=== PATIENT | male | born 1990 | race Caucasian/White ===

== ENCOUNTER 2020-06-12 10:51 | Outpatient (REF) | payer OTHER, SELFPAY ==
[2020-06-12 11:24] LABS: MANUAL DIFF FLAG NO
[2020-06-12 11:32] LABS: Basophils Absolute Auto 0.1 X10*3/uL (0.0-0.2); Basophils Percent Auto 0.7 % (0-2); Eosinophils Absolute Auto 0.2 X10*3/uL (0.0-0.4); Eosinophils Percent Auto 2.4 % (0-4); Hemoglobin 12.5 g/dl (14.0-18.0); Imm Gran Abs Auto 0.01 X10*3/uL (0.00-0.03); Imm Gran Pct Auto 0.1 % (0.0-0.4); Lymphocytes Absolute Auto 2.4 X10*3/uL (1.2-4.9); Lymphocytes Percent Auto 33.6 % (20-40); Mean Corpuscular HGB Conc 32.9 g/dl (31.0-36.0); Mean Corpuscular Hemoglobin 29.7 pg (27.0-33.0); Mean Corpuscular Volume 90.3 fL (80-98); Mean Platelet Volume 10.6 fL (9.4-12.4); Monocytes Absolute Auto 0.5 X10*3/uL (0.1-1.2); Monocytes Percent Auto 7.5 % (2-11); Neutrophils Percent Auto 55.7 % (45-73); Platelet Count 238 X10*3/uL (160-400); Red Blood Count 4.21 X10*6/uL (4.60-5.80); Red Cell Distribution Width 13.1 % (11.0-16.0); White Blood Count 7.2 X10*3/uL (4.8-10.8)
== END 2020-06-12 10:52 | disposition home or self-care (01) ==
LOC: HO.LAB 10:51
PROVIDERS: PCP Internal Medicine; Visit Provider Registered Nurse
DX: Z94.2 Lung transplant status (principal)
CPT/HCPCS: 36415; 80197; 85025

== ENCOUNTER 2020-09-16 10:57 | Outpatient (REF) | payer OTHER, SELFPAY ==
[2020-09-16 11:50] LABS: MANUAL DIFF FLAG NO
[2020-09-16 11:56] LABS: Basophils Absolute Auto 0.1 X10*3/uL (0.0-0.2); Eosinophils Absolute Auto 0.2 X10*3/uL (0.0-0.4); Eosinophils Percent Auto 3.3 % (0-4); Hematocrit 38.3 % (42-52); Hemoglobin 12.5 g/dl (14.0-18.0); Imm Gran Abs Auto 0.07 X10*3/uL (0.00-0.03); Imm Gran Pct Auto 1.2 % (0.0-0.4); Lymphocytes Absolute Auto 2.4 X10*3/uL (1.2-4.9); Lymphocytes Percent Auto 41.9 % (20-40); Mean Corpuscular HGB Conc 32.6 g/dl (31.0-36.0); Mean Corpuscular Hemoglobin 29.3 pg (27.0-33.0); Mean Corpuscular Volume 89.9 fL (80-98); Mean Platelet Volume 11.5 fL (9.4-12.4); Monocytes Absolute Auto 0.5 X10*3/uL (0.1-1.2); Neutrophils Absolute Auto 2.6 X10*3/uL (2.0-8.3); Neutrophils Percent Auto 44.6 % (45-73); Platelet Count 220 X10*3/uL (160-400); Red Blood Count 4.26 X10*6/uL (4.60-5.80); Red Cell Distribution Width 13.2 % (11.0-16.0); White Blood Count 5.8 X10*3/uL (4.8-10.8)
[2020-09-16 12:31] LABS: Alanine Aminotransferase 14 U/L (0-40); Albumin Level 4.4 g/dL (3.5-5.0); Alkaline Phosphatase 39 U/L (39-117); Anion Gap 14 (12-20); Aspartate Amino Transferase 15 U/L (5-37); Bilirubin Total 0.4 mg/dL (0.0-1.0); Blood Urea Nitrogen 29 mg/dL (9-16); Carbon Dioxide 25 mmol/L (22-29); Chloride 105 mmol/L (96-108); Estimated Glomerular Filt Rate > 60; Glucose Random 141 mg/dL (60-115); Phosphorus 3.6 mg/dL (2.7-4.5); Potassium 4.3 mmol/l (3.3-5.1); Sodium 140 mmol/L (135-145); Total Protein 7.1 g/dL (6.5-8.0)
[2020-09-16 12:45] LABS: Vitamin D 25-OH Total 30.7 ng/mL (>30)
[2020-09-17 09:37] LABS: Tacrolimus Prograf 8.1 mcg/L
== END 2020-09-16 10:58 | disposition home or self-care (01) ==
LOC: HO.LAB 10:57
PROVIDERS: PCP Internal Medicine; Visit Provider Registered Nurse
DX: Z94.2 Lung transplant status (principal)
CPT/HCPCS: 36415; 80053; 80197; 82306; 83735; 84100; 85025

== ENCOUNTER 2020-09-26 13:41 | Outpatient (REF) | payer OTHER, SELFPAY ==
[2020-09-26 15:39] LABS: Anion Gap 13 (12-20); Blood Urea Nitrogen 27 mg/dL (9-16); Calcium 9.8 mg/dL (8.4-10.2); Carbon Dioxide 31 mmol/L (22-29); Chloride 98 mmol/L (96-108); Estimated Glomerular Filt Rate 58; Glucose Random 98 mg/dL (60-115); Potassium 3.9 mmol/l (3.3-5.1); Sodium 138 mmol/L (135-145)
== END 2020-09-26 13:42 | disposition home or self-care (01) ==
LOC: HO.LAB 13:41
PROVIDERS: PCP Internal Medicine; Visit Provider Registered Nurse
DX: Z94.2 Lung transplant status (principal)
CPT/HCPCS: 36415; 80048

== ENCOUNTER 2020-10-06 14:30 | Outpatient (REF) | payer OTHER, SELFPAY ==
[2020-10-06 15:29] LABS: Hematocrit 39.5 % (42-52); Hemoglobin 12.8 g/dl (14.0-18.0); Mean Corpuscular HGB Conc 32.4 g/dl (31.0-36.0); Mean Corpuscular Hemoglobin 28.9 pg (27.0-33.0); Mean Corpuscular Volume 89.2 fL (80-98); Mean Platelet Volume 11.8 fL (9.4-12.4); Platelet Count 202 X10*3/uL (160-400); Red Blood Count 4.43 X10*6/uL (4.60-5.80); White Blood Count 4.8 X10*3/uL (4.8-10.8)
[2020-10-06 15:30] LABS: INTERNATIONAL NORM RATIO 1.1 (0.9-1.1)
[2020-10-06 15:32] LABS: Partial Thromboplastin Time 30.5 SEC (24.1-38.0)
[2020-10-06 15:47] LABS: Anion Gap 14 (12-20); Blood Urea Nitrogen 25 mg/dL (9-16); Calcium 9.1 mg/dL (8.4-10.2); Carbon Dioxide 26 mmol/L (22-29); Chloride 102 mmol/L (96-108); Estimated Glomerular Filt Rate 59; Glucose Random 128 mg/dL (60-115); Potassium 4.8 mmol/l (3.3-5.1); Sodium 137 mmol/L (135-145)
[2020-10-06 15:50] LABS: Lymphocytes Absolute Manual 1.1 X10*3/uL (0.6-4.8); Lymphocytes Percent Manual 23 % (20-40); Monocytes Absolute Manual 0.1 X10*3/uL (0.0-1.2); Monocytes Percent Manual 3 % (2-11); Neutrophils Percent Manual 74 % (45-73)
[2020-10-06 15:51] LABS: Platelet Estimate NORMAL (NORMAL); Platelet Morphology Comment NORMAL; RBC Morphology NORMAL
[2020-10-06 16:27] LABS: Band Neutrophils Percent 0 % (3-5); Neutrophils Absolute Manual 3.6 X10*3/uL (2.2-7.9)
[2020-10-07 07:12] LABS: Tacrolimus Prograf 14.8 mcg/L
[2020-10-09 02:57] LABS: CMV DNA PCR Qn Source Whole Blood; CMV DNA Qn PCR <2.30 log IU/mL (<2.30); CMV DNA Qn Real Time PCR <200 IU/mL (<200)
== END 2020-10-06 14:31 | disposition home or self-care (01) ==
LOC: HO.LAB 14:30
PROVIDERS: PCP Internal Medicine; Visit Provider Registered Nurse
DX: Z94.2 Lung transplant status (principal)
CPT/HCPCS: 36415; 80048; 80197; 85007; 85027; 85610; 85730; 87497

== ENCOUNTER 2020-10-17 10:52 | Outpatient (REF) | payer OTHER, SELFPAY ==
[2020-10-17 12:17] LABS: Anion Gap 14 (12-20); Blood Urea Nitrogen 22 mg/dL (9-16); Calcium 9.4 mg/dL (8.4-10.2); Carbon Dioxide 27 mmol/L (22-29); Chloride 103 mmol/L (96-108); Estimated Glomerular Filt Rate > 60; Glucose Random 129 mg/dL (60-115); Potassium 4.5 mmol/L (3.3-5.1); Sodium 139 mmol/L (135-145)
[2020-10-18 05:48] LABS: Tacrolimus Prograf 6.9 mcg/L
== END 2020-10-17 10:53 | disposition home or self-care (01) ==
LOC: HO.LAB 10:52
PROVIDERS: PCP Internal Medicine; Visit Provider Registered Nurse
DX: Z94.2 Lung transplant status (principal)
CPT/HCPCS: 36415; 80048; 80197

== ENCOUNTER 2021-10-29 02:09 | Emergency (ER) | payer MEDICARE, MEDICAID, SELFPAY ==
[2021-10-29 02:13] VITALS: BP 141/69; PULSE 79; RESP 16; TEMP 36.4; O2SAT 99; BMI 19.3
--- NOTE | 2021-10-29 02:55 | ED_ITS ---
HPI - Ear Problem General Chief complaint: Ear Problems Stated complaint: Earache Time Seen by Provider: 10/29/21 02:28 Source: patient Mode of arrival: ambulatory History of Present Illness HPI Narrative: 31-year-old male with multiple significant medical history to include diabetes, CF, lung transplant who presents with having been treated with ear drops approximately 2 weeks ago by his primary care provider for a left ear infection and states that initially he had good relief but states that he is now having 10/10 pain in the left ear which is causing radiation down into the Alexi neck. Patient denies any fevers, chills, sore throat, visual changes. Related Data Home Medications Medication Instructions Recorded Confirmed amlodipine 5 mg tablet 5 mg PO DAILY 10/12/21 10/29/21 ascorbic acid (vitamin C) 500 mg 500 mg PO BID 10/12/21 10/29/21 tablet (Vitamin C) azithromycin 250 mg tablet 250 mg PO USEASDIRECTD 10/12/21 10/29/21 calcium carbonate 600 mg-vitamin 1 tab PO DAILY 10/12/21 10/29/21 D3 20 mcg (800 unit) tablet ferrous gluconate 324 mg (38 mg 324 mg PO BID 10/12/21 10/29/21 iron) tablet multivitamin with folic acid 400 1 tab PO DAILY 10/12/21 10/29/21 mcg tablet (Daily-Nic (with folic acid)) prednisone 5 mg tablet 5 mg PO DAILY 10/12/21 10/29/21 tacrolimus 1 mg capsule, 4 mg PO BID 10/12/21 10/29/21 immediate-release atovaquone 750 mg/5 mL oral 1,500 mg PO DAILY 10/29/21 10/29/21 suspension biotin 5 mg capsule 5 mg PO DAILY 10/29/21 10/29/21 insulin aspart U-100 100 unit/mL See Rx Instructions .ROUTE .COMPLEX 10/29/21 10/29/21 (3 mL) subcutaneous pen (Novolog Flexpen U-100 Insulin aspart) [id number]-hiovell 5 cap PO USEASDIRECTD 10/29/21 10/29/21 24,000-76,000-120,000 unit capsule,delayed rel (Creon) magnesium oxide 400 mg (241.3 mg 1 tab PO BID 10/29/21 10/29/21 magnesium) tablet mycophenolate mofetil 500 mg tablet 2 tab PO BID 10/29/21 10/29/21 omeprazole 40 mg capsule,delayed 1 cap PO DAILY 10/29/21 10/29/21 release Previous Rx's Medication Instructions Recorded ofloxacin 0.3 % ear drops 5 drp OTIC (EARS) BID 14 Days #10 10/12/21 ml ciprofloxacin HCl 750 mg tablet 750 mg PO Q12H 7 Days #14 tab 10/29/21 Allergies Allergy/AdvReac Type Severity Reaction Status Date / Time morphine Allergy Unknown Unknown Verified 10/29/21 02:12 piperacillin [Zosyn] Allergy Unknown Unknown Verified 10/29/21 02:12 tazobactam [Zosyn] Allergy Unknown Unknown Verified 10/29/21 02:12 No Known Allergies Allergy Verified 10/29/21 02:12 Review of Systems Review of Systems: Pertinent positives and negatives as stated in HPI 10 point review of systems is otherwise negative. [facility] Past Medical History Source: nursing notes reviewed Social History Social History Housing: Apartment Alcohol intake: never Patient Tobacco Use Status: Never used Tobacco Second Hand Smoke Exposure: Yes Advance Directives: No service: No Current occupational status: employed Physical Exam Vital Signs: Vital Signs: Last Vital Signs Temp 97.6 F 10/29/21 02:13 Pulse 79 10/29/21 02:13 Resp 16 10/29/21 02:13 BP 141/69 H 10/29/21 02:13 Pulse Ox 99 10/29/21 02:13 BMI result Body Mass Index 19.3 VITAL SIGNS: Reviewed. GENERAL: Well developed, well nourished, in no acute distress. HEAD: Normocephalic/atraumatic EYES: PERRLA, EOMI EARS: LEFT Ext canals with erythema/edema, no tragus/pinnae pain on manipulation, no pain on palpation over mastoid,RIGHT external canalwithout abnormality, TMs non-bulging and non-erythematous NOSE: Nares patent bilateral OROPHARYNX: no oral lesions noted, posterior pharynx clear and non-erythematous without noted tonsillar enlargement/erythema/exudates, uvula is midline, there is no unilateral elevation of tonsillar pillars with, no trismus NECK: Supple, no adenopathy LUNGS: Normal breath sounds. No adventitious sounds or accessory muscle use. SpO2<99> CARDIOVASCULAR: Regular rate and rhythm without noted murmurs ABDOMEN: Soft, non-tender, non-distended with bowel sounds. SKIN: Inspection of the skin reveals no rashes NEUROLOGIC: Alert and oriented x 4. Course Course Course Narrative: 31-year-old male with history and clinical presentation consistent with an otitis externa and given underlying medical comorbidities patient will be placed on systemic ciprofloxacin twice daily. Patient was instructed to follow-up with his doctor later this morning to further discuss the treatment regimen and close re-evaluation. In addition, interaction purchase order checker was conducted on all of patient's home medications and this information was provided to him as well as counseling regarding strenuous activities given the fact that he is on prednisone as well as needing to be on a course of ciprofloxacin. He acknowledges understanding and initial dose was provided here in the emergency room and he was discharged with remaining course. Discharge Plan Discharge Clinical Impression: Otitis externa Patient Disposition: Home, Self-Care Instructions: Ciprofloxacin (By mouth), Otitis Externa (ED) Additional Instructions: 1. Resume all home medications, however please follow the instructions for adjusting timing of medications with the new antibiotic that you are taking orally. 2. Recommend [id number] Tylenol for discomfort. 3. Recommend completing the entire course of antibiotics. Please exercise caution with strenuous activity given concerns for possible tendon rupture. 4. 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 Return to the ER for worsening symptoms. Prescriptions: New ciprofloxacin HCl 750 mg tablet 750 mg PO Q12H 7 Days Qty: 14 0RF No Action biotin 5 mg Capsule 5 mg PO DAILY 0RF omeprazole 40 mg capsule,delayed release(DR/EC) 1 cap PO DAILY 0RF mycophenolate mofetil 500 mg tablet 2 tab PO BID 0RF magnesium oxide 400 mg (241.3 mg magnesium) tablet 1 tab PO BID 0RF atovaquone 750 mg/5 mL suspension 1,500 mg PO DAILY 0RF insulin aspart U-100 [Novolog Flexpen U-100 Insulin] 100 unit/mL (3 mL) insulin pen See Rx Instructions .ROUTE .COMPLEX 0RF Rx Instructions: ACHS Creon 24,000-76,000 -120,000 unit capsule,delayed release(DR/EC) 5 cap PO USEASDIRECTD 0RF Rx Instructions: 5 cap meals / 3 cap snacks multivitamin with folic acid [Daily-Nic (with folic acid)] 400 mcg tablet 1 tab PO DAILY 0RF prednisone 5 mg tablet 5 mg PO DAILY 0RF azithromycin 250 mg tablet 250 mg PO USEASDIRECTD 0RF Rx Instructions: MWF ascorbic acid (vitamin C) [Vitamin C] 500 mg tablet 500 mg PO BID 0RF calcium carbonate-vitamin D3 600 mg-20 mcg (800 unit) tablet 1 tab PO DAILY 0RF amlodipine 5 mg tablet 5 mg PO DAILY 0RF tacrolimus 1 mg capsule 4 mg PO BID 0RF ferrous gluconate 324 mg (38 mg iron) tablet 324 mg PO BID 0RF ofloxacin 0.3 % drops 5 drp otic (ears) BID 14 Days Qty: 10 0RF Referrals: Alexi Chandler MD [Physician] - 2 days (Patient had to be started on systemic ciprofloxacin for otitis externa of the left ear which did not resolve with ear drops.) Po,Moe Ayon MD [Primary Care Provider] - 2 days
[2021-10-29] MEDS: levoFLOXacin 750 MG TABLET PO (03:46)
== END 2021-10-29 03:47 | disposition home or self-care (01) ==
PROVIDERS: Emergency Provider Student in an Organized Health Care Education/Training Program; PCP Internal Medicine
DX: H60.93 Unspecified otitis externa, bilateral (principal); Z79.899 Other long term (current) drug therapy
CPT/HCPCS: 99283

== ENCOUNTER 2021-11-07 10:02 | Emergency (ER) | payer MEDICARE, MEDICAID, SELFPAY ==
--- NOTE | 2021-11-07 10:08 | ED.EAR ---
HPI - Ear Problem General Chief complaint: Ear Problems Stated complaint: Ear infection Time Seen by Provider: 11/07/21 10:08 Source: patient Mode of arrival: ambulatory Limitations: no limitations History of Present Illness HPI Narrative: 31 y/o male with history of cystic fibrosis s/p lung transplant in December 2018 presents to the ER for evaluation ongoing left ear pain. He reports the pain started almost a month ago and he was given antibiotic ear drops with no relief. He was seen here on on 10/29 and prescribed 7 days of ciprofloxacin. He reports the pain improved significantly with his but when he completed it a few days ago the pain started worsening again. He feels like he has muffled hearing in his left ear as well. No fever or chills. No nasal discharge or congestion. No hx of recurrent ear infections in the past. No current pulmonary issues. MD Complaint: ear pain and decreased hearing Location: left ear Duration: constant Severity: moderate Relieving factors: other (PO abx) Exacerbating factors: nothing Discharge from ear: no Associated symptoms ear: decreased hearing and external ear tenderness Treatment prior to arrival: none Related Data Home Medications Medication Instructions Recorded Confirmed amlodipine 5 mg tablet 5 mg PO DAILY 10/12/21 10/29/21 ascorbic acid (vitamin C) 500 mg 500 mg PO BID 10/12/21 10/29/21 tablet (Vitamin C) azithromycin 250 mg tablet 250 mg PO USEASDIRECTD 10/12/21 10/29/21 calcium carbonate 600 mg-vitamin 1 tab PO DAILY 10/12/21 10/29/21 D3 20 mcg (800 unit) tablet ferrous gluconate 324 mg (38 mg 324 mg PO BID 10/12/21 10/29/21 iron) tablet multivitamin with folic acid 400 1 tab PO DAILY 10/12/21 10/29/21 mcg tablet (Daily-Nic (with folic acid)) prednisone 5 mg tablet 5 mg PO DAILY 10/12/21 10/29/21 tacrolimus 1 mg capsule, 4 mg PO BID 10/12/21 10/29/21 immediate-release atovaquone 750 mg/5 mL oral 1,500 mg PO DAILY 10/29/21 10/29/21 suspension biotin 5 mg capsule 5 mg PO DAILY 10/29/21 10/29/21 insulin aspart U-100 100 unit/mL See Rx Instructions .ROUTE .COMPLEX 10/29/21 10/29/21 (3 mL) subcutaneous pen (Novolog Flexpen U-100 Insulin aspart) [id number] 5 cap PO USEASDIRECTD 10/29/21 10/29/21 24,000-76,000-120,000 unit capsule,delayed rel (Creon) magnesium oxide 400 mg (241.3 mg 1 tab PO BID 10/29/21 10/29/21 magnesium) tablet mycophenolate mofetil 500 mg tablet 2 tab PO BID 10/29/21 10/29/21 omeprazole 40 mg capsule,delayed 1 cap PO DAILY 10/29/21 10/29/21 release Previous Rx's Medication Instructions Recorded ofloxacin 0.3 % ear drops 5 drp OTIC (EARS) BID 14 Days #10 10/12/21 ml ciprofloxacin HCl 750 mg tablet 750 mg PO Q12H 7 Days #14 tab 10/29/21 ciprofloxacin 0.3 %-dexamethasone 4 drp OTIC (EARS) BID 7 Days #7.5 11/07/21 0.1 % ear drops,suspension ml (Ciprodex) levofloxacin 500 mg tablet 500 mg PO DAILY #14 tab 11/07/21 Allergies Allergy/AdvReac Type Severity Reaction Status Date / Time morphine Allergy Unknown Unknown Verified 10/29/21 02:12 piperacillin [Zosyn] Allergy Unknown Unknown Verified 10/29/21 02:12 tazobactam [Zosyn] Allergy Unknown Unknown Verified 10/29/21 02:12 No Known Allergies Allergy Verified 10/29/21 02:12 Review of Systems Review of Systems: Constitutional: No Fever, No Chills ENT/Mouth: No sore throat, No Rhinorrhea, +Otalgia, +hearing loss, no ear discharge Eyes: No Eye Pain, No Swelling, No Redness Cardiovascular: No Chest Pain, No SOB Respiratory: No Cough, No Sputum Gastrointestinal: No Nausea, No Vomiting Skin: No Skin Lesions, No rash Neuro: No Dizziness, No Headache Heme/Lymph: No Lymphadenopathy PMFSH Social History Social History Housing: Apartment Alcohol intake: never Patient Tobacco Use Status: Never used Tobacco Second Hand Smoke Exposure: Yes Use of substances other than those prescribed or required for medical reasons: No Advance Directives: No Advance Directives Information Provided: No service: No Current occupational status: employed Physical Exam Vital Signs: Vital Signs: Last Vital Signs Temp 98.3 F 11/07/21 10:11 Pulse 82 11/07/21 10:11 Resp 20 11/07/21 10:11 BP 144/71 H 11/07/21 10:11 Pulse Ox 99 11/07/21 10:11 BMI result Body Mass Index 19.3 Appearance: Alert. Oriented X3. No acute distress. Eyes: Pupils equal, round and reactive to light. ENT: Normal inspection of external ears bilaterally. Right EAC and TM normal. Left ear with discomfort with tragus pull. EAC with moderate erythema distally. TM with erythema mostly at superior portion, bulging and effusion. tender Neck: Normal inspection. Neck supple. No LAD CVS: Normal heart rate and rhythm. Pulses normal. Respiratory: No respiratory distress. Speaking in complete sentences Skin: Skin warm and dry. Normal skin color. Normal skin turgor. No rashes. Extremities: Normal inspection x4 Neuro: Oriented X 3. Grossly normal, nonfocal Course Course Course Narrative: 31 y/o male with hx CF s/p lung transplant on chronic immunosuppression presents to the ER with ongoing left ear pain for almost a month. His exam is consistent with AOM and some otitis externa as well. He did have improvement and relief with PO cipro but the course did not seem to be long enough. Will plan to give a full 2 weeks of PO levofloxacin, topical ciprodex and refer to ENT for further evaluation. patient agrees with plan. He last had blood work done a month or 2 ago with normal renal function and normal prograf levels. Discharge Plan Discharge Clinical Impression: Otitis media, Otitis externa Patient Disposition: Home, Self-Care Instructions: Otitis Externa (DC), Ear Infection (ED) Additional Instructions: Take the prescribed antibiotic as directed for a full 2 weeks. Also use the topical antibiotic drops to help with pain and swelling of the ear canal. Recommend following up with ENT specialist - name and number below Do not get water in your ear - when you shower put a small cotton ball in your ear to keep it dry Take Motrin and/or Tylenol as needed for pain If you develop new or worsening symptoms call 911 or come back to the ER for further evaluation. Prescriptions: New levofloxacin 500 mg tablet 500 mg PO DAILY Qty: 14 0RF ciprofloxacin-dexamethasone [Ciprodex] 0.3-0.1 % drops,suspension 4 drp otic (ears) BID 7 Days Qty: 7.5 0RF No Action biotin 5 mg Capsule 5 mg PO DAILY 0RF omeprazole 40 mg capsule,delayed release(DR/EC) 1 cap PO DAILY 0RF mycophenolate mofetil 500 mg tablet 2 tab PO BID 0RF magnesium oxide 400 mg (241.3 mg magnesium) tablet 1 tab PO BID 0RF atovaquone 750 mg/5 mL suspension 1,500 mg PO DAILY 0RF insulin aspart U-100 [Novolog Flexpen U-100 Insulin] 100 unit/mL (3 mL) insulin pen See Rx Instructions .ROUTE .COMPLEX 0RF Rx Instructions: ACHS Creon 24,000-76,000 -120,000 unit capsule,delayed release(DR/EC) 5 cap PO USEASDIRECTD 0RF Rx Instructions: 5 cap meals / 3 cap snacks ciprofloxacin HCl 750 mg tablet 750 mg PO Q12H 7 Days Qty: 14 0RF multivitamin with folic acid [Daily-Nic (with folic acid)] 400 mcg tablet 1 tab PO DAILY 0RF prednisone 5 mg tablet 5 mg PO DAILY 0RF azithromycin 250 mg tablet 250 mg PO USEASDIRECTD 0RF Rx Instructions: MWF ascorbic acid (vitamin C) [Vitamin C] 500 mg tablet 500 mg PO BID 0RF calcium carbonate-vitamin D3 600 mg-20 mcg (800 unit) tablet 1 tab PO DAILY 0RF amlodipine 5 mg tablet 5 mg PO DAILY 0RF tacrolimus 1 mg capsule 4 mg PO BID 0RF ferrous gluconate 324 mg (38 mg iron) tablet 324 mg PO BID 0RF ofloxacin 0.3 % drops 5 drp otic (ears) BID 14 Days Qty: 10 0RF Referrals: John Llanes [Physician] - 1 week (resistant ear infection requiring 2 courses of PO abx and gtts, hx CF, immunocompromised)
[2021-11-07 10:11] VITALS: BP 144/71; PULSE 82; RESP 20; TEMP 36.8; O2SAT 99; BMI 19.3
== END 2021-11-07 10:31 | disposition home or self-care (01) ==
PROVIDERS: Emergency Provider Emergency Medicine Emergency Medical Services; PCP Internal Medicine
DX: H66.92 Otitis media, unspecified, left ear (principal); H60.92 Unspecified otitis externa, left ear; E84.9 Cystic fibrosis, unspecified; Z94.2 Lung transplant status
CPT/HCPCS: 99283; 99284

== ENCOUNTER 2021-11-18 10:37 | Outpatient (REF) | payer MEDICARE, MEDICAID, SELFPAY ==
[2021-11-18 11:01] LABS: MANUAL DIFF FLAG NO
[2021-11-18 11:21] LABS: Basophils Percent Auto 0.6 % (0-2); Eosinophils Absolute Auto 0.2 X10*3/uL (0.0-0.4); Eosinophils Percent Auto 2.6 % (0-4); Hematocrit 37.1 % (42.0-52.0); Hemoglobin 11.6 g/dl (14.0-18.0); Imm Gran Abs Auto 0.02 X10*3/uL (0.00-0.03); Imm Gran Pct Auto 0.3 % (0.0-0.4); Lymphocytes Absolute Auto 2.1 X10*3/uL (1.2-4.9); Lymphocytes Percent Auto 29.9 % (20-40); Mean Corpuscular HGB Conc 31.3 g/dl (31.0-36.0); Mean Corpuscular Hemoglobin 28.3 pg (27.0-33.0); Mean Corpuscular Volume 90.5 fL (80.0-98.0); Monocytes Absolute Auto 0.7 X10*3/uL (0.1-1.2); Monocytes Percent Auto 10.1 % (2-11); Neutrophils Percent Auto 56.5 % (45-73); Platelet Count 228 X10*3/uL (160-400); Red Cell Distribution Width 13.9 % (11.0-16.0)
[2021-11-18 11:46] LABS: Anion Gap 11 (12-20); Blood Urea Nitrogen 24 mg/dL (9-16); Calcium 9.3 mg/dL (8.4-10.2); Carbon Dioxide 27 mmol/L (22-29); Chloride 106 mmol/L (96-108); Estimated Glomerular Filt Rate > 60; Glucose Random 116 mg/dL (60-115); Potassium 4.5 mmol/L (3.3-5.1); Sodium 139 mmol/L (135-145)
[2021-11-19 15:21] LABS: Tacrolimus Prograf 7.7 mcg/L
== END 2021-11-18 10:38 | disposition home or self-care (01) ==
LOC: HO.LAB 10:37
PROVIDERS: PCP Internal Medicine; Visit Provider Registered Nurse
DX: Z94.2 Lung transplant status (principal); Z79.899 Other long term (current) drug therapy
CPT/HCPCS: 36415; 80048; 80197; 85025

== ENCOUNTER 2022-03-04 10:55 | Outpatient (REF) | payer MEDICARE, MEDICAID, SELFPAY ==
[2022-03-06 13:42] LABS: Tacrolimus Prograf 6.7 mcg/L
== END 2022-03-04 10:56 | disposition home or self-care (01) ==
LOC: HO.LAB 10:55
PROVIDERS: PCP Internal Medicine; Visit Provider Registered Nurse
DX: Z94.2 Lung transplant status (principal); Z79.899 Other long term (current) drug therapy
CPT/HCPCS: 36415; 80197

== ENCOUNTER 2022-10-27 10:55 | Outpatient (REF) | payer MEDICARE, MEDICAID, SELFPAY | END 2022-10-27 10:56 | disposition home or self-care (01) | LOC: HO.LAB 10:55 | PROVIDERS: PCP Internal Medicine; Visit Provider Registered Nurse | DX: Z94.2 Lung transplant status (principal) | CPT/HCPCS: 36415; 80197 ==

== ENCOUNTER 2022-12-11 14:45 | Outpatient (REF) | payer MEDICARE, MEDICAID, SELFPAY ==
[2022-12-11 15:53] LABS: Appearance Urine Clear; Color Urine Yellow; Glucose Urine UA Negative (Negative); Leukocyte Esterase Urine Negative (Negative); Nitrite Urine Negative (Negative); PH 6.5 (5.0-9.0); Urine Blood Negative (Negative); Urine Ketones Negative (Negative); Urine Protein Negative (Neg-Trace)
[2022-12-13 08:24] LABS: Syphilis Screen Nonreactive (Nonreactive)
[2022-12-13 08:33] LABS: HBsAGNum1 0.39 S/CO (0.00-0.99); HIV AB/AG Nonreactive (Nonreactive); HIV Num 1 0.08 S/CO (0.00-0.99); Hepatitis B Surface Antigen Negative (Negative); ~HepC Num1 0.34 S/CO (0.00-0.79); ~Hepatitis C Antibody Nonreactive (Nonreactive)
[2022-12-16 15:29] LABS: HSV 1 IgM IFA Negative (Negative); HSV 2 IgM IFA Negative (Negative)
== END 2022-12-11 14:46 | disposition home or self-care (01) ==
LOC: HO.HMGCLDS 14:45
PROVIDERS: PCP Internal Medicine; Visit Provider Physician Assistant Medical
DX: A64 Unspecified sexually transmitted disease (principal); R30.0 Dysuria; Z20.2 Contact with and (suspected) exposure to infections with a predominantly sexual mode of transmission
CPT/HCPCS: 36415; 81003; 86695; 86696; 86780; 86803; 87340; 87389

== ENCOUNTER 2022-12-11 14:48 | Outpatient (REF) | payer MEDICARE, MEDICAID, SELFPAY | END 2022-12-11 14:49 | disposition home or self-care (01) | LOC: HO.LAB 14:48 | PROVIDERS: Visit Provider Physician Assistant Medical | DX: Z13.89 Encounter for screening for other disorder (principal) ==

== ENCOUNTER 2023-01-24 12:09 | Outpatient (REF) | payer MEDICARE, MEDICAID, SELFPAY ==
[2023-01-24 13:42] LABS: Vitamin D 25-OH Total 30.6 ng/mL (>30)
== END 2023-01-24 12:10 | disposition home or self-care (01) ==
LOC: HO.LAB 12:09
PROVIDERS: Visit Provider Registered Nurse
DX: E55.9 Vitamin D deficiency, unspecified (principal)
CPT/HCPCS: 36415; 82306

== ENCOUNTER 2023-05-24 11:01 | Outpatient (REF) | payer MEDICARE, MEDICAID, SELFPAY ==
[2023-05-24 12:46] LABS: Phosphorus 1.8 mg/dL (2.7-4.5)
[2023-05-25 13:02] LABS: Tacrolimus Prograf 10.2 NG/ML ((5-20))
== END 2023-05-24 11:02 | disposition home or self-care (01) ==
LOC: HO.LAB 11:01
PROVIDERS: Visit Provider Registered Nurse
DX: Z94.2 Lung transplant status (principal)
CPT/HCPCS: 36415; 80197; 84100

== ENCOUNTER 2023-07-28 08:22 | Outpatient (REF) | payer MEDICARE, MEDICAID, SELFPAY ==
--- NOTE | ~2023-07-28 | MM_ITS ---
EXAMINATION: BONE DENSITOMETRY CLINICAL INDICATION: Long-term use of systemic steroids. Vitamin D deficiency. COMPARISON: Baseline BD dated 06/06/2020. TECHNIQUE: Using a Quantified Skin DXA System (software version: 13.1) manufactured by [employer], dual-energy x-ray absorptiometry was performed of the lumbar spine and left hip. The images are of good technical quality. Based on ISCD (International Society for Clinical Densitometry) standards of reporting, Z-scores instead of T-scores are reported in this male patient younger than age 50. Summary results are attached. FINDINGS: AP SPINE L1-L4: Current: BMD 1.074 g/cm2, T-score -1.2, Z-score -0.7, Z-score within expected range for age, 4.9% increase from baseline (<5% change is not significant). Baseline: BMD 1.024 g/cm2. LEFT FEMUR, NECK: Current: BMD 0.928 g/cm2, T-score -1.1, Z-score -0.7, Z-score within expected range for age. Baseline: BMD 0.832 g/cm2. LEFT FEMUR, TOTAL: Current: BMD 0.865 g/cm2, T-score -1.6, Z-score -1.3, Z-score within expected range for age, 3.3% increase from baseline (<5% change is not significant). Baseline: BMD 0.837 g/cm2. IDENTIFIED RISK FACTORS: Glucocorticoids (chronic), secondary osteoporosis (type 1 diabetes). HISTORY OF FRACTURE: None listed. MEDICATIONS: Calcium or multivitamin. Vitamin D. MM/XR DEXA axial skeleton IMPRESSION: 1. DIAGNOSIS: Based on the lowest Z-score value of -1.3 in the total femur, the patient's bone density is within the expected range for age. 2. 10-YEAR FRACTURE RISK PREDICTION, FRAX: Not performed in this patient outside the age range of 50-90 years. 3. Treatment Recommendations: NOF guidelines recommend consideration for treatment in postmenopausal women and men age 50 and older presenting with the following: -A hip or vertebral (clinical or morphometric) fracture. -T-score less than or equal to -2.5 at the femoral neck or spine after appropriate evaluation to exclude secondary causes. -Low bone mass at the hip or spine and a 10-year fracture probability by FRAX of greater than or equal to 3% for hip fracture or greater than or equal to 20% for major osteoporotic fracture based on the [place] adapted WHO algorithm. 4. Other Recommendations: All treatment decisions require clinical judgment and consideration of individual patient factors, including patient preferences, comorbidities, previous drug use, risk factors not captured in the FRAX model (e.g. frailty, falls, vitamin D deficiency, increased bone turnover, interval significant decline in bone density) and possible under or overestimation of fracture risk by FRAX. FUTURE SCAN RECOMMENDATION: People with diagnosed cases of osteoporosis or at high risk for fracture should have regular bone mineral density tests. For patients eligible for Medicare, routine testing is allowed once every 2 years. The testing frequency can be increased to one year for patients who have rapidly progressing disease, those who are receiving or discontinuing medical therapy to restore bone mass, or have additional risk factors.
== END 2023-07-28 08:23 | disposition home or self-care (01) ==
LOC: HO.MAMMO 08:22
PROVIDERS: PCP Internal Medicine; Visit Provider Internal Medicine Pulmonary Disease
DX: Z13.820 Encounter for screening for osteoporosis (principal); Z79.52 Long term (current) use of systemic steroids; E55.9 Vitamin D deficiency, unspecified
CPT/HCPCS: 77080